=== PATIENT | male | born 1990 | race Caucasian/White ===

== ENCOUNTER 2020-12-03 11:23 | Outpatient (REF) | payer MEDICAID, SELFPAY | END 2020-12-03 11:24 | disposition home or self-care (01) | LOC: HO.LAB 11:23 | PROVIDERS: Visit Provider Internal Medicine | DX: Z20.822 Contact with and (suspected) exposure to COVID-19 (principal) | CPT/HCPCS: C9803; U0003; U0005 ==

== ENCOUNTER 2020-12-24 12:17 | Emergency (ER) | payer MEDICAID, SELFPAY ==
--- NOTE | 2020-12-24 12:39 | ED.GENADULT ---
HPI - General Adult General Chief complaint: Wound/Laceration Stated complaint: suture removal Time Seen by Provider: 12/24/20 12:39 Source: patient Limitations: no limitations History of Present Illness HPI narrative: Patient presents to the ER for suture removal secondary to hair transplant that occurred approximately 10-14 days ago [facility]. Patient has 1 continuous suture at the base of the scalp. With Prolene patient denies any fever chills redness or discharge from the suture lines or any other complaints. Related Data Allergies Allergy/AdvReac Type Severity Reaction Status Date / Time No Known Allergies Allergy Unverified 11/14/19 16:19 [No Known Allergies*] Review of Systems Review of Systems: Yes all other systems are reviewed and are negative Constitutional: Constitutional: Denies chills, Denies fever(s) and Denies headache(s) ENT: Denies headache(s) Gastrointestinal: Gastrointestinal: Denies nausea and Denies vomiting Neurologic: Denies headache(s) [facility] Social History Social History Advance Directives: No Advance Directives Information Provided: No Physical Exam Vital Signs: Vital Signs: Last Vital Signs Temp 98.1 F 12/24/20 12:40 Pulse 83 12/24/20 12:40 Resp 16 12/24/20 12:40 BP 125/83 12/24/20 12:40 Pulse Ox 99 12/24/20 12:40 Body Mass Index 30.1 vital signs have been reviewed as normal and appeared to be correct. Blood pressure normal. Heart rate normal. Respiration rate normal. Temperature normal. Oxygen saturation normal. Appearance: Alert. Oriented X3. No acute distress. Head: Normal external exam. Normocephalic. Atraumatic. Parietal aspect of scalp patient has a long continuous Prolene suture in place wound is well-approximated no discharge or erythema noted. Eyes: PERRLA. EOMI. ENT: Pharynx normal. Uvula midline. Moist mucous membranes. Neck: Soft full range of motion, no JVD Back: Full range of motion noted. Skin: Parietal scalp suture line placed Prolene no wound dehiscence Extremities: Patient ambulatory moving all extremities purposely Neuro: Oriented X 3. No motor deficit. No sensory deficit. Reflexes normal. Const: Other: Scalp wound check Suture removal Patient had Prolene continuous suture at the parietal aspect of the scalp removed tolerated well no sign of wound dehiscence Discharge Plan Discharge Clinical Impression: Visit for suture removal Patient Disposition: Home, Self-Care Instructions: Stitches Removal (ED) Additional Instructions: Follow-up with hair transplant team is needed
[2020-12-24 12:40] VITALS: BP 125/83; PULSE 83; RESP 16; TEMP 36.7; O2SAT 99; BMI 30.1
== END 2020-12-24 12:50 | disposition home or self-care (01) ==
LOC: HO.ED 12:47
PROVIDERS: Emergency Provider Emergency Medicine Emergency Medical Services
DX: Z48.02 Encounter for removal of sutures (principal); Z98.890 Other specified postprocedural states
CPT/HCPCS: 99283